=== PATIENT | male | born 1950 | race Caucasian/White ===

== ENCOUNTER 2016-08-24 14:51 | Emergency (ER) | payer OTHER ==
--- NOTE | 2016-08-24 16:11 | PROVIDER DOCUMENTATION ---
HPI-Male Problem - General Chief Complaint: Urinary Retention Stated Complaint: URINARY RETENTION Time Seen by Provider: 08/24/16 15:18 Source: patient, family Allergies/Adverse Reactions: Patient Allergies Allergy/AdvReac Type Severity Reaction Status Date / Time No Known Allergies Allergy Verified 08/24/16 15:30 Home Medications: Home Medication List Medication Instructions Recorded Confirmed Last Taken Type Aspirin 81 mg PO DAILY 05/15/16 08/24/16 05/07/16 History 81 PRAVAstatin [Pravachol] 20 mg PO DIRECTED 05/15/16 08/24/16 05/09/16 History 20 Ibuprofen 2 tab PO Q6H PRN PRN 05/23/16 08/24/16 05/14/16 History 2 Tamsulosin [Flomax] 0.4 mg PO QHS #10 capsule 08/24/16 Unknown Rx - History of Present Illness-Male Nature of Presenting Problem: 66 yo WM with hx of TURP 3 months ago. Had acute urinary retention about a week ago and had problems passing cath himself. Went to [place] and staff had problems with catheter but eventually got it in and he wore it for a week. Took out cath and was scheduled for cysto. Today had problems urinating. Unable to pass catheter and came to ED. While waiting he was able to urinate three times. Bladder scan was 53 cc. Location of Complaint: reports: suprapubic Radiation: reports: none, suprapubic Quality of Pain: reports: aching Severity in ED: reports: mild Onset/Duration: reports: 4-6 hours ago Timing: reports: improving, resolved prior to arrival, intermittent Context/Activities at Onset: reports: none Urinary Symptoms: reports: hesitancy, retention. denies: dysuria, dribbling, frequency, hematuria Sexual intercourse history: reports: Not Active Associated Symptoms: reports: none Associated Symptoms: denies: back/neck pain, fever/chills Similar Symptoms Previously?: Yes Recently seen or treated by another doctor?: Yes Review of Systems - Adult - REVIEW OF SYSTEMS - ADULT Constitutional: reports: no symptoms reported. denies: chills, fever Eyes: reports: no symptoms reported Ears, Nose, Mouth & Throat: reports: no symptoms reported Cardiovascular: reports: no symptoms reported Respiratory: reports: no symptoms reported Gastrointestinal: reports: no symptoms reported Genitourinary: reports: see HPI Integumentary: reports: no symptoms reported Neurological: reports: no symptoms reported Psychiatric: reports: no symptoms reported Past History - Adult - PAST MEDICAL HISTORY-ADULT Review of Records: reports: Old Records Reviewed, Nursing Assessment Review, Medications Reviewed, Social history reviewed & non-contributory. Cardiovascular: reports: denies history Respiratory: reports: denies history Gastrointestinal: reports: denies history Genitourinary: reports: retention, other (TURP) Neurological: reports: denies history Psychiatric: reports: denies history Endocrine/Immune: reports: denies history - PRIOR SURGERIES/PROCEDURES Surgical/Procedure History: reports: other (TURP) - FAMILY HISTORY Family History: reviewed, not pertinent - SOCIAL HISTORY Smoking: denies, non-smoker Substance Use: none/never Alcohol Use Frequency: never Living Situation: family Physical Exam-General - PHYSICAL EXAM-ADULT Initial Vital Signs Reviewed: Yes - CONSTITUTIONAL General Appearance: appears well, alert, no apparent distress - EYES Eyes: PERRL/EOMI - NECK Neck: full range of motion - RESPIRATORY Respiratory: lungs clear, normal breath sounds, no pleuratic chest pain, no respiratory distress, no accessory muscle use - CARDIOVASCULAR Cardiovascular: normal peripheral pulses, regular rate, rhythm - GASTROINTESTINAL (ABDOMEN) Abdominal Exam: normal bowel sounds, non tender, soft. negative: guarding, rigid, rebound, mass - MUSCULOSKELETAL Back Exam: no CVA tenderness Extremity: no pedal edema - SKIN Integumentary: normal color - NEUROLOGIC Neurologic: grossly normal - PSYCHIATRIC Psych/Mental Status: normal mood/affect, normal thought content, normal thought process, oriented x 3 Progress - PLAN OF CARE/RESULTS Progress/Plan/Lab Results: Vital Signs Temp Pulse Resp BP Pulse Ox 08/24/16 14:54 97.4 F L 86 18 147/65 100 No Known Allergies Allergy (Verified 08/24/16 15:30) Aspirin 81 mg PO DAILY 05/15/16 PRAVAstatin [Pravachol] 20 mg PO DIRECTED 05/15/16 Ibuprofen 2 tab PO Q6H PRN PRN 05/23/16 Orders Category Date Time Status Guzman Cath Insertion ORDERED Care 08/24/16 16:14 Active Lidocaine 2% Jelly Appl [Xylocaine 2% Jelly Uroject] Med 08/24/16 16:26 Discontinued 10 ml .ROUTE .STK-MED ONE Lidocaine 2% Jelly [Xylocaine 2% Jelly] Med 08/24/16 16:22 Discontinued 5 ml TOP NOW ONE 1722 Two nurses tried to pass catheter. I tried and met resistance. Withrawal of catheter showed bleeding on last 1.5 inches of catheter. 1729 Via text Phyllis suggested 10Fr try and/or send home on flomax. Nurse instructed to get 10fr 1744 Unsuccessful trial at passage of 12 fr silicone cath. 1814 Ananyev to come in for guzman placement. - CONSULTS/PCP/HOSPITALIST Notification #1 *Consult/PCP/Hospitalist*: Ananyev Time Discussed: 16:05 Reason/Comments: Place 14 cameroonian silicone catheter, f/u in office Consult Disposition: F/U in office Departure - Departure Time of Disposition Order: 18:15 DIAGNOSIS: Urinary retention, S/P TURP Disposition: HOME 01 Certified Medical Emergency: Emergent Condition: Good Additional Instructions: ED Follow Up Instructions: You have been treated by a care provider in the Emergency Department. These instructions are being provided to you so you can have an understanding of how to care for yourself upon discharge. Upon discharge from the Emergency Department, you are responsible for making arrangements for follow-up care by a physician of your choice. Take all prescribed medications as directed. Return to the Emergency Department immediately for any new or worsening symptoms. You may call the Physician Referral phone number at [phone] to obtain a list of Physicians who are taking new patients. Prescriptions: Tamsulosin [Flomax] 0.4 mg PO QHS #10 capsule Referrals: Jeffrey Salas MD [Primary Care Provider] - Instructions: Urinary Retention, Acute, Male, [id number]
[2016-08-24] MEDS ORDERED: XYLOCAINE 2% JELLY TOP ONE (16:22)
[2016-08-24] MEDS ORDERED: XYLOCAINE 2% JELLY UROJECT ONE (16:26)
[2016-08-24] MEDS ORDERED: FLOMAX PO ONE (17:29)
[2016-08-24 19:39] VITALS: BP 130/85
--- NOTE | 2016-08-24 21:42 | CONSULTATION ---
DATE OF CONSULTATION: 08/24/2016 CONSULTING PHYSICIAN: Murray Gomez M.D. in the emergency room. REASON FOR CONSULTATION: Urinary retention, unsuccessful Fall placement attempt. HISTORY OF PRESENT ILLNESS: A 66-year-old male with a longstanding history of BPH, who has been on dual medical therapy and has had a history of elevated PSA and several previous negative biopsies. He had failed Avodart, Proscar and Uroxatral. He eventually went to urinary retention. He elected to proceed with transurethral resection of prostate which took place on 05/23/2016. The patient states that postoperatively he has done pretty well with a strong stream and no need for medications. He did develop progressive difficulty voiding with a dribbling sensation and incomplete emptying a week and a half ago. He was seen in the office and had a Fall catheter placed. It was removed at our office on 08/22/2016. The patient reports that over the day and a half he had progressive dribbling and slowing of the urinary stream. He attempted to catheterize himself but was unable to do so. He has done that in the past and been successful. He presented to the emergency room. Multiple attempts were used to try to catheterize him including smaller catheters but without success. I was consulted. The patient denies gross hematuria, dysuria, flank pain or fevers over the last several days. PAST MEDICAL HISTORY: Hyperlipidemia, BPH, elevated PSA, history of retention. PAST SURGICAL HISTORY: Transurethral resection of prostate, several prostate biopsies. ALLERGIES: No known drug allergies. FAMILY HISTORY: Positive for colorectal cancer. SOCIAL HISTORY: Former smoker, denies alcohol or drug use. MEDICATIONS: Please see his electronic medical chart. REVIEW OF SYSTEMS: Reviewed and 12 systems were negative except as noted in HPI. PHYSICAL EXAMINATION: Vital Signs: T 97.4 degrees. P 86. BP 147/65. General: No acute distress. Pleasant male. HEENT: Normocephalic, atraumatic. Cardiovascular: Regular rate and rhythm. Pulmonary: Bilateral breath sounds. Abdomen: Nontender to palpation. Nondistended. Genitourinary: Normal phallus, circumcised, meatus normal, testes descended bilaterally. Rectal: Digital rectal examination deferred at this time. Lymphatic: No groin lymphadenopathy. Dermatologic: No obvious skin rashes. Neurologic: Alert and oriented x3. Psychiatric: Appropriate mood and affect. PERTINENT LABS: None. PERTINENT IMAGES: He had a postvoid residual of just 92 mL but felt like he was full and could not empty. ASSESSMENT AND PLAN: A 66-year-old male with a history of retention which was managed with transurethral resection of prostate, who had done well until last week and a half when he developed weakened stream, sensation of incomplete emptying and reportedly retention. I used Bard Difficult Catheterization Kit and in a sterile fashion his genitals were prepped and draped followed by introduction of a soft tipped filiform. I was able to get into the bladder after some manipulation. This was evidenced by urine drops around the filiform. I then introduced an 18- [place] tip catheter over the filiform and light pink urine was returned. I have discussed with the patient importance of keeping the catheter in until his cystoscopic examination which is supposed to be done on Saturday by Dr. Carrizales. PLAN: 1. Keep all catheter gravity drainage. 2. Cleared for discharge from urologic standpoint. 3. He plans to follow up with Dr. Carrizales on 08/29/2016 to undergo cystoscopy to elucidate the reason for this new onset of retention.
== END 2016-08-24 19:39 | disposition home or self-care (01) ==
LOC: ED 14:51
DX: R33.9 Retention of urine, unspecified (principal); R39.11 Hesitancy of micturition; Z79.82 Long term (current) use of aspirin; Z79.899 Other long term (current) drug therapy; Z98.890 Other specified postprocedural states